=== PATIENT | female | born 1955 | race Two or more races ===

== ENCOUNTER 2016-06-06 10:09 | Day surgery (SDC) | payer BC, OTHER ==
[~2016-06-06] VITALS: Ht 157.5 cm; Wt 61.0 kg
[2016-06-06] MEDS ORDERED: ERGO500037 PO (10:51)
[2016-06-06] MEDS ORDERED: FOLI1CAP PO (10:52)
[2016-06-06] MEDS ORDERED: ATOR20TA38 PO (10:52)
[2016-06-06] MEDS ORDERED: CALC667C PO (10:53)
[2016-06-06] MEDS ORDERED: NEBI20TA2 PO (10:53)
[2016-06-06] MEDS ORDERED: VALS160T20 PO (10:53)
[2016-06-06] MEDS ORDERED: FOLI1TAB42 PO (10:55)
[2016-06-06] MEDS ORDERED: CALC0.5C2 PO (10:55)
[2016-06-06 11:34] VITALS: BP 188/85; PULSE 69; RESP 18; Ht 157.5 cm; Wt 61.0 kg
[2016-06-06] MEDS ORDERED: FENTAnyl 50 MCG/ML VIAL ONE (12:40)
[2016-06-06] MEDS ORDERED: MIDAZOLAM 1 MG/ML 2 ML INJ ONE (12:40)
[2016-06-06] MEDS ORDERED: LIDOCAINE 1% (MDV) 20 ML INJ ONE (13:07)
[2016-06-06] MEDS ORDERED: SOD CHLORIDE 0.9% 500 ML ONE (13:07)
[2016-06-06] MEDS ORDERED: IODIXANOL LOCM 50 ML BTL ONE (13:07)
[2016-06-06 13:55] VITALS: BP 177/79; PULSE 66; RESP 16
--- NOTE | 2016-06-06 14:24 | RADRPT ---
PROCEDURE: Fluoroscopic guided left upper extremity dialysis fistulogram. CLINICAL INDICATION: Renal failure. Left upper extremity dialysis fistula malfunction. TECHNIQUE: The procedure, risks, benefits, complications and alternatives were explained to the patient. Risks including bleeding and infection were explained. In addition, risks regarding contrast reaction and occlusion of the fistula were explained. The patient understood and were willing to proceed. Consent was obtained. A procedural pause was performed. The patient's name, date of , and procedure to be performed were verified. The left upper arm was prepped and draped in the usual sterile fashion. One percent lidocaine was us ed as local anesthesia. A 21 gauge single wall puncture needle was inserted into the dialysis fistul a outflow vein inferiorly without difficulty. A 0.018 inch guidewire was then advanced through the n eedle into the outflow vein. A 5 Luxembourger sheath was then exchanged for the needle. Contrast was injec meredith and multiple digital images were obtained. Images of the left upper extremity, left axillary reg ion, and left side of chest and superior vena cava were also obtained. Subsequently, pressure was ap plied to the outflow vein. Injection of contrast and multiple digital images of the arterial anasto major region were obtained. The images demonstrate patent outflow system with a few small collateral veins. The outflow vein is the cephalic vein which is mildly dilated overlying the lower humerus. The left axillary, brachioep halic, subclavian, and superior vena cava veins are normal. There is no stenosis or occlusion. The sheath was removed following placement of a pursestring suture using 4-0 Vicryl. Pressure was h eld for approximately 10 minutes with good hemostasis. The patient tolerated the procedure well. COMPARISON: None. FINDINGS: The images demonstrate patent outflow system with a few small collateral veins. The outflow vein is the cephalic vein which is mildly dilated overlying the lower humerus. The left axillary, brachioep halic, subclavian, and superior vena cava veins are normal. There is no stenosis or occlusion. The arterial anastomoses is also normal with no stenosis or occlusion. IMPRESSION: 1. Brachial artery to cephalic vein fistula. 2. The outflow veins including the axillary, subclavian, and superior vena cava are patent. 3. Normal appearing arterial anastomoses. RPTAT: QQ .Cory Madrigal MD, MD Date Time Electronically viewed and signed by .Cory Madrigal MD, on 06/06/2016 14:23 .R/
[2016-06-06 16:10] VITALS: BP 177/80; PULSE 71; RESP 16
== END 2016-06-06 16:10 | disposition home or self-care (01) ==
LOC: SDS 10:09
PROVIDERS: ATTEND Radiology Diagnostic Radiology
DX: I12.0 Hypertensive chronic kidney disease with stage 5 chronic kidney disease or end stage renal disease (principal); N18.6 End stage renal disease
CPT/HCPCS: 36901; C1769; C1894; J1644; J2250; J3010; J7040; Q9967